=== PATIENT | male | born 1955 | race Caucasian/White ===

== ENCOUNTER 2019-08-21 16:21 | Emergency (ER) | payer BC, OTHER ==
[~2019-08-21] VITALS: Ht 172.7 cm; Wt 109.1 kg
[~2019-08-21 16:21] MED LIST: ASPI-587 PO; BLOOD PRESSURE; CLIN300C3 PO; MTP50T PO; MULT1CAP27 PO; NAPR220C11 PO
[2019-08-21] MEDS ORDERED: fentaNYL INJECTION 100 MCG/2 ML AMP ONE (16:27)
[2019-08-21] MEDS ORDERED: KETAMINE HCL 100 MG/ML 5 ML VIAL ONE (16:27)
[2019-08-21] MEDS ORDERED: KETAMINE/NaCl 50 MG/5 ML SYRINGE (ED ONLY) ONE (16:34)
[2019-08-21 16:41] LABS: HEMOGLOBIN 15.7 G/DL (13.3-17.7); MEAN PLATELET VOLUME 8.6 FL (7.4-10.4); RED CELL DISTRIBUTION WIDTH 14.1 % (10.0-14.5); WHITE BLOOD COUNT 12.1 10^3/uL (4.3-11.0)
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
[2019-08-21] MEDS ORDERED: fentaNYL INJECTION 100 MCG/2 ML AMP IVP ONE ×3 (16:45→17:30)
[2019-08-21] MEDS ORDERED: KETAMINE/NaCl 50 MG/5 ML SYRINGE (ED ONLY) IV ONE ×2 (16:45→17:30)
[2019-08-21] MEDS ORDERED: hydrALAZINE (APESOLINE) 20 MG/ML VIAL ONE (16:47)
[2019-08-21 16:58] LABS: ALANINE AMINOTRANSFERASE 10 U/L (0-55); ALBUMIN 4.3 GM/DL (3.2-4.5); ALKALINE PHOSPHATASE 123 U/L (40-136); BILIRUBIN,DIRECT 0.2 MG/DL (0.0-0.3); BILIRUBIN,INDIRECT 0.3 MG/DL; BILIRUBIN,TOTAL 0.5 MG/DL (0.1-1.0); BUN/CREATININE RATIO 13; CALCIUM 9.6 MG/DL (8.5-10.1); CARBON DIOXIDE 22 MMOL/L (21-32); CHLORIDE 106 MMOL/L (98-107); CREATININE SERUM 0.95 MG/DL (0.60-1.30); GFR ESTIMATED > 60; GLUCOSE 110 MG/DL (70-105); POTASSIUM 3.7 MMOL/L (3.6-5.0); SODIUM 140 MMOL/L (135-145); TOTAL PROTEIN 7.9 GM/DL (6.4-8.2)
[2019-08-21] MEDS ORDERED: LACTATED RINGERS 1,000 ML IV ONE (16:58)
--- NOTE | 2019-08-21 16:58 | NUR ---
[facility] ON STANDBY AT THIS TIME
[2019-08-21] MEDS ORDERED: hydrALAZINE (APESOLINE) 20 MG/ML VIAL IV ONE (17:00)
[2019-08-21] MEDS ORDERED: TETANUS,DIPTH,PERTUSS P/F (BOOSTRIX) 0.5 ML VIAL IM ONE (17:00)
[2019-08-21] MEDS ORDERED: ceFAZolin INJECTION 1,000 MG in WATER (STERILE) FOR INJECTION 10 ML IV ONE (17:00)
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
--- NOTE | 2019-08-21 17:25 | NUR ---
[facility] HERE TO TRANSPORT PT
[2019-08-21 17:33] VITALS: BP 176/109
[2019-08-21] MEDS ORDERED: LACTATED RINGERS 2,000 ML IV ONE (18:27)
== END 2019-08-21 17:35 | disposition short-term general hospital (02) ==
LOC: EDUNIT# 16:21 → ER 16:22
DX: T21.21XA Burn of second degree of chest wall, initial encounter (principal); T22.042A Burn of unspecified degree of left axilla, initial encounter; T21.04XA Burn of unspecified degree of lower back, initial encounter; T22.012A Burn of unspecified degree of left forearm, initial encounter; T23.091A Burn of unspecified degree of multiple sites of right wrist and hand, initial encounter; T23.092A Burn of unspecified degree of multiple sites of left wrist and hand, initial encounter; T31.0 Burns involving less than 10% of body surface; R40.2142 Coma scale, eyes open, spontaneous, at arrival to emergency department; R40.2252 Coma scale, best verbal response, oriented, at arrival to emergency department; R40.2362 Coma scale, best motor response, obeys commands, at arrival to emergency department; K21.9 Gastro-esophageal reflux disease without esophagitis; F17.200 Nicotine dependence, unspecified, uncomplicated; Z23 Encounter for immunization; Z79.82 Long term (current) use of aspirin; Z88.8 Allergy status to other drugs, medicaments and biological substances; X08.8XXA Exposure to other specified smoke, fire and flames, initial encounter
CPT/HCPCS: 36415; 71045; 80048; 80076; 80320; 85027; 90471; 90715; 93041; 96374; 96375; 96376

== ENCOUNTER → 2021-06-24 | Outpatient (CLI) | payer MEDICARE ==
[~2021-06-24] MED LIST changes: +CATHETER FLUSH 10 ML SYR IV PRN; +HOLD METFORMIN - RECEIVED CONTRAST 20 ML VIAL IV SCH; +IOHEXOL 350 MG/ML 100 ML (OMNIPAQUE 350) VIAL IV ONE; +NS 100 ML (IVPB) BAG IV ONE
[2021-06-24 10:53] LABS: ALBUMIN 3.9 GM/DL (3.2-4.5); BILIRUBIN,TOTAL 1.2 MG/DL (0.1-1.0); CALCIUM 9.7 MG/DL (8.5-10.1); CREATININE SERUM 0.75 MG/DL (0.60-1.30); TOTAL PROTEIN 7.8 GM/DL (6.4-8.2)
--- NOTE | 2021-06-24 13:23 | Diagnostic Imaging Report ---
PROCEDURE: CT chest with contrast only. TECHNIQUE: Multiple contiguous axial images were obtained through the chest after administration of intravenous contrast. Auto Exposure Controls were utilized during the CT exam to meet ALARA standards for radiation dose reduction. INDICATION: Shortness of breath with hemoptysis. History of colon cancer. FINDINGS: The lungs show some hyperaeration. There are numerous pulmonary nodules scattered throughout both lungs. The largest mass is in the upper lobe on the right measuring 7.5 x 5.5 cm. The largest mass in the left lung is in the lingula measuring 9.5 x 8 cm. Some of the nodules do show some calcification present. There is diffuse mediastinal and hilar adenopathy with adenopathy encasing the right hilum and compressing the right mainstem bronchus. The mediastinal lymph nodes measure upwards of 2 cm with multiple enlarged lymph nodes. There is a calcified enlarged lymph node in the subcarinal region as well. No pleural effusion. There is atelectasis of the right middle lobe secondary to compression of the bronchus from hilar adenopathy. The adrenal glands are not enlarged. There is a single hypodense subcentimeter area within the inferior portion of the right lobe of the liver. No blastic or lytic bony changes. IMPRESSION: Numerous nodules within both lungs with calcification in the larger masses. These findings would be consistent with metastatic adenocarcinoma with the patient's history. Dictated by: Dictated on workstation # [id number]
== END ==
LOC: RAD 10:19
PROVIDERS: ATTEND Internal Medicine
DX: C80.1 Malignant (primary) neoplasm, unspecified (principal); C78.01 Secondary malignant neoplasm of right lung; C78.02 Secondary malignant neoplasm of left lung; R91.8 Other nonspecific abnormal finding of lung field; Z85.038 Personal history of other malignant neoplasm of large intestine
CPT/HCPCS: 36415; 71260; 80053

== ENCOUNTER 2021-07-09 07:36 | Day surgery (SDC) | payer MEDICARE ==
[2021-07-09] VITALS (12 sets, daily range): BP systolic 107–132; BP diastolic 66–98
[~2021-07-09] VITALS: Ht 177.8 cm; Wt 86.3 kg
[~2021-07-09 07:36] MED LIST changes: -CATHETER FLUSH 10 ML SYR IV PRN; -HOLD METFORMIN - RECEIVED CONTRAST 20 ML VIAL IV SCH; -IOHEXOL 350 MG/ML 100 ML (OMNIPAQUE 350) VIAL IV ONE; -NS 100 ML (IVPB) BAG IV ONE
[2021-07-09] MEDS ORDERED: NS IV 1000 ML 1,000 ML IV STA (08:32)
[2021-07-09] MEDS ORDERED: fentaNYL INJ 100 MCG/2 ML AMP IVP ONE (08:45)
[2021-07-09] MEDS ORDERED: LIDOCAINE 1% INJ 20 ML 20 ML VIAL INJ ONE (08:45)
[2021-07-09] MEDS ORDERED: MIDAZOLAM 2 MG/2 ML (VERSED) VIAL IVP ONE (08:45)
[2021-07-09 08:48] LABS: BASOPHILS # (AUTO) 0.1 10^3/uL (0.0-0.1); BASOPHILS % (AUTO) 2 % (0-10); EOSINOPHILS # (AUTO) 0.7 10^3/uL (0.0-0.3); EOSINOPHILS % (AUTO) 9 % (0-10); HEMATOCRIT 45 % (40-54); HEMOGLOBIN 14.4 g/dL (13.3-17.7); LYMPHOCYTES # (AUTO) 1.3 10^3/uL (1.0-4.0); LYMPHOCYTES % (AUTO) 17 % (12-44); MEAN CORPUSCULAR HEMOGLOBIN 27 pg (25-34); MEAN CORPUSCULAR HGB CONC 32 g/dL (32-36); MEAN CORPUSCULAR VOLUME 83 fL (80-99); MEAN PLATELET VOLUME 8.8 fL (9.0-12.2); MONOCYTES # (AUTO) 0.8 10^3/uL (0.0-1.0); MONOCYTES % (AUTO) 10 % (0-12); NEUTROPHILS # (AUTO) 4.7 10^3/uL (1.8-7.8); NEUTROPHILS % (AUTO) 61 % (42-75); PLATELET COUNT 306 10^3/uL (130-400); WHITE BLOOD COUNT 7.7 10^3/uL (4.3-11.0)
[2021-07-09] MEDS ORDERED: HYDROcodone/APAP 5 MG/325 MG (LORTAB) TAB PO PRN (11:15)
--- NOTE | 2021-07-09 11:50 | Pre-Op Note & Conscious Sedat ---
Pre-Operative Progress Note H&P Reviewed The H&P was reviewed, patient examined and no changes noted. Date H&P Reviewed: Jul 09, 2021 Time H&P Reviewed: 09:00 Pre-Op Diagnosis: lung mass Conscious Sedation Pre-Proced Time 09:00 ASA Score 2 For ASA 3 and 4: Consider anesthesia and medical clearance. Also, for patients with a history of failed moderate sedation consider anesthesia. Airway Lungs Heart ASA score ASA 1: a normal healthy patient ASA 2: a patient with a mild systemic disease (mid diabetes, controlled hypertension, obesity ASA 3: a patient with a severe systemic disease that limits activity (angina, COPD, prior Myocardial infarction) ASA 4: a patient with an incapacitating disease that is a constant threat to life (CHF, renal failure) ASA 5: a moribund patient not expected to survive 24 hrs. (ruptured aneurysm) ASA 6: a declared brain- patient whose organs are being harvested. For emergent operations, add the letter E after the classification Mallampati Classification Grade 2 Sedation Plan Analgesia, Amnesia, Plan communicated to team members, Discussed options with patient/fam, Discussed risks with patient/fam The patient is an appropriate candidate to undergo the planned procedure, sedation, and anesthesia. The patient immediately re-assessed prior to indication. CECILE DIAZ MD Jul 09, 2021 11:50
--- NOTE | 2021-07-09 11:54 | Diagnostic Imaging Report ---
INDICATION: Lung mass. TECHNIQUE: All CT scans use one or more of the following dose optimizing techniques: automated exposure control, MA and/or KvP adjustment based on patient size and exam type or iterative reconstruction. DETAILS OF THE PROCEDURE: The patient was brought to the CT suite and placed on the table in the supine position. Axial imaging of the chest was performed to evaluate for an appropriate entry site. The skin of the left anterior chest was prepped and draped in the usual sterile fashion. A small amount of 1% lidocaine was utilized for local anesthesia. The procedure was performed utilizing conscious sedation with Radiology nursing and constant patient monitoring. The patient was given a total of 100 mg of fentanyl intravenously and 1 mg Versed intravenously. The total procedure time was 7 minutes. FINDINGS: An 18-gauge coaxial Temno needle was advanced and placed with its tip in the dominant mass in the left upper lobe. A total of 5 core biopsies was obtained. A blood patch was injected during needle removal. The patient tolerated the procedure well and left the Department in stable condition. Followup imaging shows no complicating features. No pneumothorax was detected. IMPRESSION: Successful CT-guided left upper lobe lung mass core biopsy utilizing conscious sedation. Pathology results are currently pending. Dictated by: Dictated on workstation # [id number]
--- NOTE | 2021-07-09 12:43 | Diagnostic Imaging Report ---
INDICATION: Left lung biopsy. COMPARISON: Correlation is made with prior chest from 08/21/2019. FINDINGS: Enlarging masses bilaterally are noted. There is a left chest wall port with tip overlying the SVC. No pneumothorax is identified, status post left lung mass biopsy. There is no effusion. IMPRESSION: 1. Enlarging masses since exam from 2019. 2. No evidence of pneumothorax, status post left lung mass biopsy. Dictated by: Dictated on workstation # [id number]
== END 2021-07-09 13:10 ==
LOC: RAD 07:36 → SDC 10:46 → RAD 13:10
PROVIDERS: ATTEND Internal Medicine
DX: J85.0 Gangrene and necrosis of lung (principal); R91.8 Other nonspecific abnormal finding of lung field; J98.4 Other disorders of lung; J40 Bronchitis, not specified as acute or chronic
CPT/HCPCS: 36415; 71045; 77012; 85025; 85610; 85730; 88305; 99156

== ENCOUNTER 2021-08-04 07:59 | Day surgery (SDC) | payer MEDICARE ==
[2021-08-04] VITALS (11 sets, daily range): BP systolic 101–124; BP diastolic 67–90
[~2021-08-04] VITALS: Ht 177 cm; Wt 81.0 kg
[2021-08-04 08:39] LABS: BASOPHILS # (AUTO) 0.1 10^3/uL (0.0-0.1); BASOPHILS % (AUTO) 1 % (0-10); EOSINOPHILS # (AUTO) 0.5 10^3/uL (0.0-0.3); EOSINOPHILS % (AUTO) 6 % (0-10); HEMATOCRIT 48 % (40-54); HEMOGLOBIN 14.7 g/dL (13.3-17.7); LYMPHOCYTES # (AUTO) 1.4 10^3/uL (1.0-4.0); LYMPHOCYTES % (AUTO) 16 % (12-44); MEAN CORPUSCULAR HEMOGLOBIN 26 pg (25-34); MEAN CORPUSCULAR HGB CONC 31 g/dL (32-36); MEAN CORPUSCULAR VOLUME 86 fL (80-99); MEAN PLATELET VOLUME 8.8 fL (9.0-12.2); MONOCYTES % (AUTO) 11 % (0-12); NEUTROPHILS # (AUTO) 5.7 10^3/uL (1.8-7.8); NEUTROPHILS % (AUTO) 66 % (42-75); PLATELET COUNT 374 10^3/uL (130-400); WHITE BLOOD COUNT 8.7 10^3/uL (4.3-11.0)
[2021-08-04] MEDS ORDERED: NS IV 1000 ML 1,000 ML IV STA (08:42)
[2021-08-04] MEDS ORDERED: LISI1TAB46 PO (08:43)
[2021-08-04] MEDS ORDERED: ATOR40TA70 PO (08:43)
[2021-08-04] MEDS ORDERED: MIDAZOLAM 2 MG/2 ML (VERSED) VIAL IVP ONE (08:45)
[2021-08-04] MEDS ORDERED: LIDOCAINE 1% INJ 20 ML 20 ML VIAL INJ ONE (08:45)
[2021-08-04] MEDS ORDERED: fentaNYL INJ 100 MCG/2 ML AMP IVP ONE (08:45)
[2021-08-04 08:50] LABS: PROTHROMBIN TIME PATIENT 13.9 SEC (12.2-14.7)
[2021-08-04] MEDS ORDERED: fentaNYL INJ 100 MCG/2 ML AMP ONE (09:12)
[2021-08-04] MEDS ORDERED: LIDOCAINE 1% INJ 20 ML 20 ML VIAL ONE (09:12)
[2021-08-04] MEDS ORDERED: MIDAZOLAM 2 MG/2 ML (VERSED) VIAL ONE (09:12)
--- NOTE | 2021-08-04 10:08 | Pre-Op Note & Conscious Sedat ---
Pre-Operative Progress Note H&P Reviewed The H&P was reviewed, patient examined and no changes noted. Date H&P Reviewed: Aug 04, 2021 Time H&P Reviewed: 09:00 Pre-Op Diagnosis: lung mass Conscious Sedation Pre-Proced Time 09:00 ASA Score 2 For ASA 3 and 4: Consider anesthesia and medical clearance. Also, for patients with a history of failed moderate sedation consider anesthesia. Airway Lungs Heart ASA score ASA 1: a normal healthy patient ASA 2: a patient with a mild systemic disease (mid diabetes, controlled hypertension, obesity ASA 3: a patient with a severe systemic disease that limits activity (angina, COPD, prior Myocardial infarction) ASA 4: a patient with an incapacitating disease that is a constant threat to life (CHF, renal failure) ASA 5: a moribund patient not expected to survive 24 hrs. (ruptured aneurysm) ASA 6: a declared brain- patient whose organs are being harvested. For emergent operations, add the letter E after the classification Mallampati Classification Grade 2 Sedation Plan Analgesia, Amnesia, Plan communicated to team members, Discussed options with patient/fam, Discussed risks with patient/fam The patient is an appropriate candidate to undergo the planned procedure, sedation, and anesthesia. The patient immediately re-assessed prior to indication. CECILE DIAZ MD Aug 04, 2021 10:08
[2021-08-04] MEDS ORDERED: HYDROcodone/APAP 5 MG/325 MG (LORTAB) TAB PO PRN (10:15)
--- NOTE | 2021-08-04 10:20 | Diagnostic Imaging Report ---
INDICATION: Left lung mass. Patient presents for repeat CT-guided biopsy. TECHNIQUE: All CT scans use one or more of the following dose optimizing techniques: automated exposure control, MA and/or KvP adjustment based on patient size and exam type or iterative reconstruction DETAILS OF THE PROCEDURE: The patient was brought to the CT suite and placed on the table in the supine position. Axial imaging through the chest was performed to evaluate for an appropriate entry site. The left anterior chest was prepped and draped in the usual sterile fashion. A small amount of 1% lidocaine was utilized for local anesthesia. The procedure was performed utilizing conscious sedation with Radiology nursing and constant patient monitoring. The patient was given a total of 50 mcg of fentanyl intravenously and 1 mg of Versed intravenously. The total procedure time was 7 minutes. An 18-gauge coaxial Temno needle was advanced and placed into the dominant mass in the left upper lobe. Numerous core biopsies were obtained. A blood patch was injected during needle removal. Hemostasis was obtained using manual compression. Followup imaging shows no complicating features. No pneumothorax is identified. IMPRESSION: Successful ultrasound guided core biopsy of the dominant mass in the left upper lobe utilizing conscious sedation. Pathology results are currently pending. . Dictated by: Dictated on workstation # [id number]
--- NOTE | 2021-08-04 12:09 | Diagnostic Imaging Report ---
INDICATION: Status post lung biopsy. COMPARISON: 07/09/2021. FINDINGS: Single frontal radiographic view of the chest was obtained and demonstrates no pneumothorax status post left lung mass biopsy. There is no large effusion. Multiple mass-like opacities are again identified bilaterally. Cardiac silhouette is partially obscured, but appears stable. Left sided Port-A-Cath is noted with tip in the mid to upper IVC. IMPRESSION: 1. No pneumothorax status post left lung mass biopsy. 2. Redemonstration of multiple bilateral lung masses. Dictated by: Dictated on workstation # [id number]
== END 2021-08-04 12:47 ==
LOC: SDC 07:59
PROVIDERS: ATTEND Internal Medicine
DX: C34.92 Malignant neoplasm of unspecified part of left bronchus or lung (principal); I10 Essential (primary) hypertension; J40 Bronchitis, not specified as acute or chronic; Z79.899 Other long term (current) drug therapy; Z90.49 Acquired absence of other specified parts of digestive tract; Z85.038 Personal history of other malignant neoplasm of large intestine; Z87.891 Personal history of nicotine dependence
CPT/HCPCS: 36415; 71045; 77012; 85025; 85610; 85730; 88305; 88341; 88342; 99156

== ENCOUNTER → 2021-09-04 | Outpatient (CLI) | payer MEDICARE ==
[~2021-09-04] MED LIST changes: +ATOR40TA70 PO; +CATHETER FLUSH 10 ML SYR IV PRN; +HOLD METFORMIN - RECEIVED CONTRAST 20 ML VIAL IV SCH; +IOHEXOL 350 MG/ML 100 ML (OMNIPAQUE 350) VIAL IV ONE; +LISI1TAB46 PO; +NS 100 ML (IVPB) BAG IV ONE
--- NOTE | 2021-09-04 14:00 | Diagnostic Imaging Report ---
EXAMINATION: CT chest with intravenous contrast. TECHNIQUE: Multiple contiguous axial images were obtained through the chest after the uneventful administration of intravenous contrast. All CT scans use one or more of the following dose optimizing techniques: automated exposure control, MA and/or KvP adjustment based on patient size and exam type or iterative reconstruction. HISTORY: History of colon cancer with lung metastases. Respiratory distress. COMPARISON: 06/24/2021. FINDINGS: The heart size is within normal limits. Small pericardial effusion is present. Pathologically enlarged lymphadenopathy is seen in the mediastinum and bilateral hilar regions with a marker lymph node in the right paratracheal station measuring 1.8 cm, previously measuring 2.2 cm. Lung masses and nodules are again seen throughout both lungs, with the dominant mass in the lingula/inferior aspect of the left upper lobe measuring 9.7 x 8.7 cm, previously measuring 9.3 x 8.0 cm. There is stable mass within the distal aspect of the left mainstem bronchus. There is stable narrowing of the right mainstem bronchus secondary to hilar lymphadenopathy. There is stable complete atelectasis of the right middle lung. Trace right-sided pleural effusion is seen. No evidence of pneumothorax. The osseous structures demonstrate no acute abnormalities. Limited views of the upper abdominal structures demonstrate no acute abnormalities. Both adrenal glands are unremarkable. IMPRESSION: 1. Interval progression of widespread metastatic disease throughout both lungs with increase in size in the dominant lesion in the lingula/inferior portion of the left upper lobe. 2. Redemonstration of pathologically enlarged mediastinal and hilar lymph nodes. These are causing mass effect on the right mainstem bronchus with complete atelectasis of the right middle lobe. Dictated by: Dictated on workstation # [id number]
== END ==
LOC: RAD 13:13
PROVIDERS: ATTEND Internal Medicine Hematology & Oncology
DX: C18.9 Malignant neoplasm of colon, unspecified (principal); C78.02 Secondary malignant neoplasm of left lung; C78.01 Secondary malignant neoplasm of right lung
CPT/HCPCS: 71260

== ENCOUNTER 2021-09-15 09:30 | Inpatient (IN) | payer MEDICARE ==
[~2021-09-15] VITALS: Ht 176 cm; Wt 75.7 kg
[~2021-09-15 09:30] MED LIST changes: -ATOR80TA76 PO; -PRED10TA22 PO
--- NOTE | 2021-09-15 09:54 | ED Respiratory ---
General Chief Complaint: Respiratory Problems Stated Complaint: SOB Nursing Triage Note: PT TO RM 2 BY WHEELCHAIR FROM RADIOLOGY FOR CONCERN OF COLLAPSED LUNG. PT WAS HAVING SCAN FOR RADIATION TREATMENT. STATES HE STARTED COUGHING ON WEDNESDAY. PT WAS 83% ON 4LNC. Source: patient Exam Limitations: no limitations History of Present Illness Date Seen by Provider: Sep 15, 2021 Time Seen by Provider: 09:40 Initial Comments Patient is a 66-year-old male who presents to the emergency department from the cancer [place] with a chief complaint of "collapsed lung". Patient was recently diagnosed with lung cancer, he was getting ready to have radiation treatment today, they did a prescreening chest x-ray and noticed what looked like the right lung being "down". On my review it appears the patient has a very large right pleural effusion. Nursing reports that on 4 L the patient was 83% when he arrived to the emergency room. He does wear 2 to 3 L of oxygen 15/03. He states normally his oxygen is fairly good. Off oxygen he was running at about 85% prior to his diagnosis of cancer. He states he actually does not feel bad. He has no pain. He has chronic cough and chronic shortness of breath related to the cancer. He has not had anything for breakfast this morning did have a small sip of water with his morning medications. No recent fevers, chills, Covid concerns. All other review of systems reviewed and negative except as stated Timing/Duration: this morning Prior Episodes/Possible Cause: other (lung cancer) Modifying Factors: Worse With Coughing; Improves With Oxygen Associated Symptoms: cough (chronic), shortness of breath (chronic) Allergies and Home Medications Allergies Coded Allergies: adhesive (Verified Allergy, Mild, 02/15/14) Patient Home Medication List Home Medication List Reviewed: Yes Atorvastatin Calcium (Atorvastatin Calcium) 40 Mg Tablet, 40 MG PO DAILY, (Reported) Entered as Reported by: EMIL ANDINO on 08/04/21842 Lisinopril/Hydrochlorothiazide (Lisinopril-Hctz 20-12.5 mg Tab) 1 Each Tablet, 1 EACH PO DAILY, (Reported) Entered as Reported by: EMIL ANDINO on 08/04/21842 Review of Systems Review of Systems Constitutional: see HPI EENTM: no symptoms reported Respiratory: cough, short of breath Cardiovascular: no symptoms reported Gastrointestinal: no symptoms reported Genitourinary: no symptoms reported Musculoskeletal: no symptoms reported Skin: no symptoms reported Psychiatric/Neurological: No Symptoms Reported All Other Systems Reviewed Negative Unless Noted: Yes Past Ezwrakj-Hiisqy-Urwypc Hx Immunizations Up To Date Tetanus Booster (TDap): More than 5yrs PED Vaccines UTD: Yes Past Medical History Surgeries: Yes (HEMORRHOIDECTOMY, LEFT ANKLE FX, LEFT HAND FX, COLOSTOMY) Respiratory: No Cardiac: Yes Neurological: No Gastrointestinal: Yes (COLON CA, COLOSTOMY) Gastroesophageal Reflux Musculoskeletal: Yes (ANKLE ET LT HAND REPAIR) Endocrine: No Cancer: Yes Colon Psychosocial: No Integumentary: No Blood Disorders: No Physical Exam Vital Signs - First Documented 09/15/21 09:30 Pulse 92 Resp 12 B/P (MAP) 120/76 (91) Pulse Ox 83 O2 Delivery Nasal Cannula O2 Flow Rate 3.00 Capillary Refill : Height: 5'9.00" Weight: 203lbs. oz. 92.943434iw; 24.00 BMI Method: General Appearance: WD/WN, mild distress Eyes: Bilateral Eye Normal Inspection, Bilateral Eye PERRL, Bilateral Eye EOMI HEENT: PERRL/EOMI Neck: normal inspection Respiratory: lungs clear (slightly diminished left; sats 95% on 10-12 liters), no respiratory distress, no accessory muscle use, other (slightly labored breathing) Cardiovascular: regular rate, rhythm Gastrointestinal: normal bowel sounds, non tender, soft Extremities: non-tender, normal inspection, no pedal edema Neurologic/Psychiatric: alert, normal mood/affect, oriented x 3 Skin: normal color, warm/dry Progress/Results/Core Measures Suspected Sepsis SIRS Temperature: Pulse: 92 Respiratory Rate: 12 Laboratory Tests 09/15/21 09:38: White Blood Count 9.4 Blood Pressure 120 /76 Mean: 91 Laboratory Tests 09/15/21 09:38: Creatinine 0.64, INR Comment 1.0, Platelet Count 325, Total Bilirubin 1.2H Results/Orders Lab Results Laboratory Tests Test 09/15/21 09:38 Range/Units White Blood Count 9.4 4.3-11.0 10^3/uL Red Blood Count 5.52 4.30-5.52 10^6/uL Hemoglobin 14.7 13.3-17.7 g/dL Hematocrit 47 40-54 % Mean Corpuscular Volume 85 80-99 fL Mean Corpuscular Hemoglobin 27 25-34 pg Mean Corpuscular Hemoglobin Concent 31 L 32-36 g/dL Red Cell Distribution Width 14.6 H 10.0-14.5 % Platelet Count 325 130-400 10^3/uL Mean Platelet Volume 8.5 L 9.0-12.2 fL Immature Granulocyte % (Auto) 1 % Neutrophils (%) (Auto) 83 H 42-75 % Lymphocytes (%) (Auto) 10 L 12-44 % Monocytes (%) (Auto) 5 0-12 % Eosinophils (%) (Auto) 2 0-10 % Basophils (%) (Auto) 0 0-10 % Neutrophils # (Auto) 7.7 1.8-7.8 10^3/uL Lymphocytes # (Auto) 0.9 L 1.0-4.0 10^3/uL Monocytes # (Auto) 0.4 0.0-1.0 10^3/uL Eosinophils # (Auto) 0.1 0.0-0.3 10^3/uL Basophils # (Auto) 0.0 0.0-0.1 10^3/uL Immature Granulocyte # (Auto) 0.1 0.0-0.1 10^3/uL Prothrombin Time 13.5 12.2-14.7 SEC INR Comment 1.0 0.8-1.4 Activated Partial Thromboplast Time 28 24-35 SEC Sodium Level 140 135-145 MMOL/L Potassium Level 3.3 L 3.6-5.0 MMOL/L Chloride Level 99 98-107 MMOL/L Carbon Dioxide Level 28 21-32 MMOL/L Anion Gap 13 5-14 MMOL/L Blood Urea Nitrogen 16 7-18 MG/DL Creatinine 0.64 0.60-1.30 MG/DL Estimat Glomerular Filtration Rate 104 BUN/Creatinine Ratio 25 Glucose Level 77 70-105 MG/DL Calcium Level 9.1 8.5-10.1 MG/DL Corrected Calcium 9.5 8.5-10.1 MG/DL Total Bilirubin 1.2 H 0.1-1.0 MG/DL Aspartate Amino Transf (AST/SGOT) 23 5-34 U/L Alanine Aminotransferase (ALT/SGPT) 17 0-55 U/L Alkaline Phosphatase 113 40-136 U/L Total Protein 7.3 6.4-8.2 GM/DL Albumin 3.5 3.2-4.5 GM/DL My Orders Orders - KENTRELL HARRIS MD Ed Iv/Invasive Line Start (09/15/21 09:50) Cbc With Automated Diff (09/15/21 09:50) Comprehensive Metabolic Panel (09/15/21 09:50) Protime With Inr (09/15/21 09:50) Partial Thromboplastin Time (09/15/21 09:50) Ct Chest W (09/15/21 09:50) Iohexol Injection (Omnipaque 350 Mg/Ml 1 (09/15/21 10:15) Received Contrast (Hold Metformin- Contr (09/15/21 10:15) Ns (Ivpb) (Sodium Chloride 0.9% Ivpb Bag (09/15/21 10:15) Methylprednisolone Sod Succ (Solu-Medrol (09/15/21 12:30) Covid 19 Inhouse Test (09/15/21 12:18) Influenza A And B By Pcr (09/15/21 12:18) Isolation Central Supply Req (09/15/21 12:18) Medications Given in ED Current Medications Medications Dose Ordered Sig/Mone Route Start Time Stop Time Status Last Admin Dose Admin Iohexol 100 ml ONCE ONCE IV 09/15/21 10:15 09/15/21 10:16 DC 09/15/21 10:33 74 ML Sodium Chloride 100 ml ONCE ONCE IV 09/15/21 10:15 09/15/21 10:16 DC 09/15/21 10:33 80 ML Vital Signs/I&O 09/15/21 09/15/21 09:30 09:30 Pulse 92 Resp 12 B/P (MAP) 120/76 (91) Pulse Ox 83 O2 Delivery Nasal Cannula Nasal Cannula O2 Flow Rate 3.00 4.00 Capillary Refill : Blood Pressure Mean: 91 Progress Note : Time: 12:09 Progress Note Case discussed with Dr. Lee as well as Dr. Cuevas radiation oncology, patient has complete atelectasis of the entire right lung with minimal right-sided pleural effusion. Complete occlusion of the right mainstem bronchus. Needs significant amounts of radiation to give him a chance to recover from this. He did have a radiation dose this morning prior to coming over with his hypoxia. I think that he would struggle at home on higher amounts of oxygen and the potential for decompensation is significant. We will talk to Dr. Szymanski for admission. I reevaluated the patient he is still on simple facemask, oxygen saturations 96% while at rest in the bed on 06/02. Rest of his labs are unremarkable. Departure Communication (Admissions) Time/Spoke to Admitting Phy: 12:30 Dr Szymanski - will put in que'd orders Time/Spoke to Consulting Phy: 11:[address] Appiah Impression Primary Impression: Hypoxia Additional Impression: Metastatic adenocarcinoma Disposition: ADMITTED INPATIENT Condition: Stable Admissions Decision to Admit Reason: Admit from ER (General) Decision to Admit/Date: Sep 15, 2021 Time/Decision to Admit Time: 12:31 Departure-Patient Inst. Referrals: CHANTE LINDQUIST MD (PCP/Family) Primary Care Physician KENTRELL HARRIS MD Sep 15, 2021 09:54
[2021-09-15 10:01] LABS: BASOPHILS % (AUTO) 0 % (0-10); EOSINOPHILS # (AUTO) 0.1 10^3/uL (0.0-0.3); EOSINOPHILS % (AUTO) 2 % (0-10); HEMATOCRIT 47 % (40-54); HEMOGLOBIN 14.7 g/dL (13.3-17.7); LYMPHOCYTES # (AUTO) 0.9 10^3/uL (1.0-4.0); LYMPHOCYTES % (AUTO) 10 % (12-44); MEAN CORPUSCULAR HEMOGLOBIN 27 pg (25-34); MEAN CORPUSCULAR HGB CONC 31 g/dL (32-36); MEAN CORPUSCULAR VOLUME 85 fL (80-99); MEAN PLATELET VOLUME 8.5 fL (9.0-12.2); MONOCYTES # (AUTO) 0.4 10^3/uL (0.0-1.0); MONOCYTES % (AUTO) 5 % (0-12); NEUTROPHILS # (AUTO) 7.7 10^3/uL (1.8-7.8); NEUTROPHILS % (AUTO) 83 % (42-75); PLATELET COUNT 325 10^3/uL (130-400); WHITE BLOOD COUNT 9.4 10^3/uL (4.3-11.0)
[2021-09-15 10:03] LABS: ALBUMIN 3.5 GM/DL (3.2-4.5)
[2021-09-15 10:04] LABS: POTASSIUM 3.3 MMOL/L (3.6-5.0)
[2021-09-15 10:05] LABS: CALCIUM 9.1 MG/DL (8.5-10.1)
[2021-09-15 10:06] LABS: TOTAL PROTEIN 7.3 GM/DL (6.4-8.2)
[2021-09-15 10:08] LABS: BILIRUBIN,TOTAL 1.2 MG/DL (0.1-1.0); PROTHROMBIN TIME PATIENT 13.5 SEC (12.2-14.7)
[2021-09-15 10:10] LABS: CREATININE SERUM 0.64 MG/DL (0.60-1.30)
[2021-09-15] MEDS ORDERED: IOHEXOL 350 MG/ML 100 ML (OMNIPAQUE 350) VIAL IV ONE (10:15)
[2021-09-15] MEDS ORDERED: HOLD METFORMIN - RECEIVED CONTRAST 20 ML VIAL IV SCH (10:15)
[2021-09-15] MEDS ORDERED: NS 100 ML (IVPB) BAG IV ONE (10:15)
--- NOTE | 2021-09-15 11:14 | Diagnostic Imaging Report ---
PROCEDURE: CT chest with contrast only. TECHNIQUE: Multiple contiguous axial images were obtained through the chest after administration of intravenous contrast. Auto Exposure Controls were utilized during the CT exam to meet ALARA standards for radiation dose reduction. INDICATION: Lung cancer with new opacification of right hemithorax. COMPARISON: Correlation is made with chest radiograph earlier same day as well as prior CT chest from 09/04/2021. FINDINGS: There has been development of complete opacification of the right hemithorax. The opacification appears to be largely owing to complete atelectasis of the entire right lung as well as tumor. It is difficult to separate tumor from atelectatic lung. There is a complete occlusion of the right mainstem bronchus. There is some pleural fluid on the right, small. A large mass in the left upper lobe appears similar. There are innumerable additional smaller masses throughout the left upper lobe as well as the left lower lobe and lingula, similar to the prior study from 11 days earlier. No left-sided pleural fluid is seen. There are numerous enlarged masses in the mediastinum, similar to prior exam. The thoracic aorta is unremarkable. No dissection is seen. The central pulmonary arteries are patent. No definite thromboemboli are seen. Upper abdomen is unremarkable. IMPRESSION: There is now complete atelectasis of the entire right lung with occlusion of the right mainstem bronchus. No aerated right lung is visible. There is a small right effusion as well. Tumor masses throughout the left lung and mediastinal metastatic disease are unchanged. Dictated by: Dictated on workstation # [id number]
[2021-09-15] MEDS ORDERED: methylPREDNISolone 125 MG (Solu-MEDROL) VIAL IVP ONE (12:30)
[2021-09-15 13:37] LABS: ABG BASE EXCESS 6.3 MMOL/L (-2.5-2.5); ABG OXYGEN SATURATION 96 % (94-100); ABG PCO2 45 MMHG (35-45); ABG PH 7.45 (7.37-7.43); ABG PO2 71 MMHG (79-93); ABG TCO2 31.8 MMOL/L (21.0-31.0)
[2021-09-15 13:38] LABS: ALLENS TEST YES-POS; INSPIRED O2 9; PATIENT TEMP 36.7; VENTILATOR NO
[2021-09-15] MEDS ORDERED: ALPRAZolam 0.5 MG (XANAX) TAB PO PRN (14:45)
[2021-09-15] MEDS ORDERED: NALOXONE 0.4 MG/ML 1 ML (NARCAN) VIAL IV PRN (14:45)
[2021-09-15] MEDS ORDERED: diphenhydrAMINE 50 MG/ML INJ (BENADRYL) IVP PRN (14:45)
[2021-09-15] MEDS ORDERED: diphenhydrAMINE 25 MG TAB (BENADRYL) PO PRN (14:45)
[2021-09-15] MEDS ORDERED: ONDANSETRON 4 MG (ZOFRAN) ORAL DISSOLVE TAB PO PRN (14:45)
[2021-09-15] MEDS ORDERED: BISACODYL 10 MG SUPP (DULCOLAX) PR PRN (14:45)
[2021-09-15] MEDS ORDERED: LACTULOSE SYRUP 10GM/15ML (ENULOSE) 30ML UDC PO PRN (14:45)
[2021-09-15] MEDS ORDERED: ACETAMINOPHEN 325 MG TABLET PO PRN (14:45)
[2021-09-15] MEDS ORDERED: morphine INJ 4 MG/ML 1 ML (VIAL/SYRINGE) IV PRN (14:45)
[2021-09-15] MEDS ORDERED: ANTACID SUSP 30 ML UDC (MYLANTA) PO PRN (14:45)
[2021-09-15] MEDS ORDERED: MILK OF MAGNESIA 400 MG/5 ML 30 ML UDC PO PRN (14:45)
[2021-09-15] MEDS ORDERED: MELATONIN 3 MG TABLET PO PRN (14:45)
[2021-09-15] MEDS ORDERED: polyethylene glycoL POWDER 17 GM (MIRALAX) PACK PO PRN (14:45)
[2021-09-15] MEDS ORDERED: ONDANSETRON 4 MG/2 ML (SDV) Z0FRAN IV PRN (14:45)
[2021-09-15 15:15] VITALS: BP 122/79
--- NOTE | 2021-09-15 15:23 | History & Physical-Hospitalist ---
SANDRA SCHWARTZ 09/15/21 1523: History of Present Illness HPI/Chief Complaint This is a 66 y/o male with a hx of colon cancer with extensive metastases to the lungs and liver who presents due to hypoxia and a possible collapsed right lung. The pt was scheduled for his 6th day of radiation today when a pre-procedure chest X-ray showed a possible collapse of the right lung. At this time, the patient was also observed with an O2 saturation of 83% on 4 L by NC; his baseline O2 requirement. He was then sent to the ED at [facility] for further evaluation. In the ED, his O2 improved to 93% on 10L NC. A Chest CT obtained at this time showed "complete atelectasis of the entire right lung with occlusion of the right mainstem bronchus. No aerated right lung is visible." He currently reports no pain, fevers, chills, nausea, or change in bowel or bladder habits. He does report a chronic cough, and some recent unintended weight loss. Source: patient Exam Limitations: no limitations Date Seen 09/15/21 Time Seen by a Provider: 13:00 Attending Physician Bushra Bass DO PCP Carlos Flowers MD Referring Physician Date of Admission Sep 15, 2021 at 14:53 Home Medications & Allergies Home Medications Reviewed patient Home Medication Reconciliation performed by pharmacy medication reconciliations technician preventative medicine and/or nursing. Patients Allergies have been reviewed. Allergies Allergies Coded Allergies adhesive (Verified Allergy, Mild, 09/15/21) Past Hyvjago-Vdsatm-Zdchty Hx Patient Social History Employed/Student: retired Tobacco Use?: No Smoking Status: Former Smoker (1-1.5 ppd for 50 years) Use of E-Cig and/or Vaping dev: No Substance use?: No Alcohol Use?: No Pt feels they are or have been: No Immunizations Up To Date Tetanus Booster (TDap): Unknown PED Vaccines UTD: Yes Current Status Advance Directives: No Primary Language: Urdu Preferred Spoken Language: Urdu Implanted or [employer] D: Port-a-cath (left side; placed in 2014) Past Medical History Surgeries: Abdominal (left hemicolectomy) Hypertension Gastroesophageal Reflux Fractures (left leg and ankle fracture) Colon (with metastases to liver and lungs) Did You Recieve Any Treatments: Yes What Type of Treatment Did You: Chemotherapy, Radiation, Surgical Intervention Blood Disorders: No Family Medical History No Pertinent Family Hx Review of Systems Constitutional: No chills, No fever; weight loss EENTM: No hearing loss, No blurred vision, No vision loss, No throat pain Respiratory: cough, short of breath, wheezing Cardiovascular: No chest pain, No palpitations Gastrointestinal: No abdominal pain, No constipation, No diarrhea; loss of appetite; No nausea, No vomiting Genitourinary: No discharge, No dysuria Musculoskeletal: no symptoms reported Skin: no symptoms reported Psychiatric/Neurological: No Symptoms Reported Physical Exam Physical Exam Vital Signs Vital Signs - First Documented 09/15/21 09:30 Pulse 92 Resp 12 B/P (MAP) 120/76 (91) Pulse Ox 83 O2 Delivery Nasal Cannula O2 Flow Rate 3.00 Capillary Refill : Height, Weight, BMI Height: 5'9.00" Weight: 203lbs. oz. 92.148033as; 24.00 BMI Method: General Appearance: Chronically ill, Mild Distress, Thin Eyes: Bilateral Eye Normal Inspection, Bilateral Eye PERRL, Bilateral Eye EOMI HEENT: PERRL/EOMI Neck: Non Tender Respiratory: Chest Non Tender, Decreased Breath Sounds (primarily on the right), Wheezing (primarily on the left) Cardiovascular: Regular Rate, Rhythm, No Gallop, No Murmur Gastrointestinal: Non Tender, Soft Rectal: Deferred Extremity: Non Tender Neurologic/Psychiatric: Alert, Oriented x3 Skin: Normal Color, Warm/Dry Results Results/Procedures Labs Laboratory Tests 09/15/21 09:38 Patient resulted labs reviewed. Imaging: Reviewed Imaging Films, Reviewed Imaging Report Assessment/Plan Admission Diagnosis acute on chronic hypoxic respiratory failure Admission Status: Inpatient Order (span 2 midnights) Reason for Inpatient Admission: acute on chronic hypoxic respiratory failure Assessment and Plan This is a 66 y/o male with a hx of adenocarcinoma of the colon with metastases to the liver and lungs who presents with atelectasis of the right lung due to obstruction of the right main stem bronchus by tumor, resulting in acute on chronic hypoxic respiratory failure. In his current condition, it is thought that it will be dangerous to send him home with his current oxygen requirements, so admission to the medicine service is warranted. Diagnosis/Problems Diagnosis/Problems (1) Acute on chronic respiratory failure with hypoxia and hypercapnia Status: Acute Assessment & Plan: - likely 2/2 right lung atelectasis - initial O2 sat by pulse ox in ED: 83% - initial AB.45/45/71/30 - increasing O2 requirements - CXR/Chest CT suggests obstruction of right main stem bronchus by metastatic disease - pulm toilet w/ CPT q4h for clearance of airway secretions (if no acute spinal pathology, hemoptysis, PE, pulm edema w/ CHF present) - caution over sedation and monitor clearance of airway secretions while on anti-tussives PRN - RCAT, IS q1h awake - wean O2 as tolerated (2) Metastatic adenocarcinoma Status: Chronic Assessment & Plan: - Stage 4 adenocarcinoma of the colon with mets in lung and liver - Pt currently undergoing radiation and chemotherapy treatments at [facility] - Oncology and radiation oncology to follow; appreciate recs - Consider palliative care consult (3) Hypertension Status: Chronic Assessment & Plan: - continue lisinopril/HCTZ Qualifiers: Hypertension type: primary hypertension Qualified Codes: I10 - Essential (primary) hypertension (4) Hyperlipemia Status: Chronic Assessment & Plan: - continue statin Qualifiers: Hyperlipidemia type: mixed hyperlipidemia Qualified Codes: E78.2 - Mixed hyperlipidemia BASSLAYLA ELLISKd TAN 09/16/21 0554: History of Present Illness HPI/Chief Complaint Chief complaint: Shortness of breath History of present illness: This is a 66-year-old white male with known history of colon cancer with widespread metastasis undergoing radiation treatment for lung masses who presented with shortness of breath found to have complete whiteout of right lung. Radiation treatment is the only way the tumor can be shrunk in order to improve variation of the lung. Dr. Lee will consult. Oxygen supplementation along with IV steroids and nebulized treatments initiated. He is a DO NOT RESUSCITATE. Source: patient Exam Limitations: no limitations Past Pcfodla-Lrfetm-Hiivry Hx Patient Social History Marrital Status: single Employed/Student: retired Smoking Status: Former Smoker (1-1.5 ppd for 50 years) Past Medical History Hypertension Review of Systems Constitutional: see HPI Respiratory: dyspnea on exertion Physical Exam Physical Exam General Appearance: No Apparent Distress, Chronically ill Eyes: Right Eye Normal Inspection, Right Eye PERRL HEENT: PERRL/EOMI, Normal ENT Inspection, Pharynx Normal, Moist Mucous Membranes Neck: Full Range of Motion, Normal Inspection, Non Tender Respiratory: Chest Non Tender, No Accessory Muscle Use, No Respiratory Distress, Decreased Breath Sounds (primarily on the right), Wheezing (primarily on the left) Cardiovascular: Regular Rate, Rhythm, No Edema, No Gallop, No JVD, No Murmur, Normal Peripheral Pulses Gastrointestinal: Normal Bowel Sounds, No Organomegaly, No Pulsatile Mass, Non Tender, Soft Back: Normal Inspection, No CVA Tenderness, No Vertebral Tenderness Extremity: Normal Capillary Refill, Normal Inspection, Normal Range of Motion, Non Tender, No Calf Tenderness, No Pedal Edema Neurologic/Psychiatric: Alert, Oriented x3, No Motor/Sensory Deficits, Normal Mood/Affect Skin: Normal Color, Warm/Dry Lymphatic: No Adenopathy Assessment/Plan Admission Diagnosis Assessment: Acute hypoxic respiratory failure Colon cancer with widespread metastasis Lung mass causing whiteout of the lung undergoing radiation treatment the only treatment available Exacerbation of COPD Hypertension Plan: Nebulizers Oxygen IV steroids Radiation treatment Admission Status: Inpatient Order (span 2 midnights) Reason for Inpatient Admission: resp failure Supervisory-Addendum Brief Verification & Attestation Participated in pt care: history, MDM, physical Personally performed: exam, history, MDM, supervision of care Care discussed with: Medical Student Procedures: n/a Results interpretation: Verified all documentation Verification and Attestation of Medical Student E/M Service A medical student performed and documented this service in my presence. I revie wed and verified all information documented by the medical student and made modifications to such information, when appropriate. I personally performed the physical exam and medical decision making. Bushra Bass Sep 16, 2021,05:51 SANDRA SCHWARTZ Sep 15, 2021 15:23 BUSHRA BASS DO Sep 16, 2021 05:54
[2021-09-15] MEDS: ENOXAPARIN 40 MG/0.4 ML (LOVENOX) SYR SC SCH (16:02)
[2021-09-15 16:15] VITALS: BP 112/75
[2021-09-15] MEDS ORDERED: RT-ALBUTEROL SULF 2.5 MG/3 ML PRE-MIX VIAL INH PRN (16:30)
[2021-09-15] MEDS: methylPREDNISolone 125 MG (Solu-MEDROL) VIAL IVP SCH ×2 (17:58→23:35)
[2021-09-15] MEDS: RT-ALBUTEROL SULF 2.5 MG/3 ML PRE-MIX VIAL INH SCH (18:48)
[2021-09-15] MEDS: DOCUSATE SODIUM 100 MG (COLACE) CAP PO SCH (19:23)
[2021-09-15] MEDS: SENNOSIDES 8.6 MG (SENOKOT) TAB PO SCH (19:23)
[2021-09-15 19:51] VITALS: BP 101/65
[2021-09-15 23:00] VITALS: BP 118/72
[2021-09-16 03:19] VITALS: BP 118/80
[2021-09-16] MEDS: methylPREDNISolone 125 MG (Solu-MEDROL) VIAL IVP SCH ×4 (05:35→23:45)
[2021-09-16 06:32] LABS: BASOPHILS % (AUTO) 0 % (0-10); EOSINOPHILS % (AUTO) 0 % (0-10); HEMATOCRIT 41 % (40-54); LYMPHOCYTES # (AUTO) 0.3 10^3/uL (1.0-4.0); LYMPHOCYTES % (AUTO) 6 % (12-44); MEAN CORPUSCULAR HEMOGLOBIN 26 pg (25-34); MEAN CORPUSCULAR HGB CONC 32 g/dL (32-36); MEAN CORPUSCULAR VOLUME 83 fL (80-99); MONOCYTES # (AUTO) 0.4 10^3/uL (0.0-1.0); MONOCYTES % (AUTO) 6 % (0-12); NEUTROPHILS # (AUTO) 5.1 10^3/uL (1.8-7.8); NEUTROPHILS % (AUTO) 88 % (42-75); PLATELET COUNT 229 10^3/uL (130-400); WHITE BLOOD COUNT 5.8 10^3/uL (4.3-11.0)
[2021-09-16 06:51] LABS: BILIRUBIN,TOTAL 0.8 MG/DL (0.1-1.0); CALCIUM 8.8 MG/DL (8.5-10.1); CREATININE SERUM 0.55 MG/DL (0.60-1.30); POTASSIUM 4.2 MMOL/L (3.6-5.0); TOTAL PROTEIN 6.4 GM/DL (6.4-8.2)
[2021-09-16] MEDS: RT-ALBUTEROL SULF 2.5 MG/3 ML PRE-MIX VIAL INH SCH ×4 (07:22→18:56)
[2021-09-16 07:23] LABS: BAND NEUTROPHILS 2 %; BASOPHILS % (MANUAL) 0 %; ELLIPT/OVALOCYTES SLIGHT; EOSINOPHILS % (MANUAL) 0 %; LYMPHOCYTES % (MANUAL) 11 %; MONOCYTES % (MANUAL) 6 %; NEUTROPHILS % (MANUAL) 81 %
[2021-09-16 08:00] VITALS: BP 125/76
[2021-09-16] MEDS: DOCUSATE SODIUM 100 MG (COLACE) CAP PO SCH ×2 (09:45→20:08)
[2021-09-16] MEDS: lisINopril 20 MG (PRINIVIL) TABLET PO SCH (09:45)
[2021-09-16] MEDS: SENNOSIDES 8.6 MG (SENOKOT) TAB PO SCH ×2 (09:45→20:08)
--- NOTE | 2021-09-16 11:00 | Progress Note - Hospitalist ---
SANDRA SCHWARTZ 09/16/21 1100: Subjective HPI/CC On Admission Date Seen by Provider: Sep 16, 2021 Time Seen by Provider: 10:00 Chief complaint: Shortness of breath History of present illness: This is a 66-year-old white male with known history of colon cancer with widespread metastasis undergoing radiation treatment for lung masses who presented with shortness of breath found to have complete whiteout of right lung. Radiation treatment is the only way the tumor can be shrunk in order to improve variation of the lung. Dr. Lee will consult. Oxygen supplementation along with IV steroids and nebulized treatments initiated. He is a DO NOT RESUSCITATE. Subjective/Events-last exam This is a 66 y/o male with a hx of colon cancer with metastases to the lung and liver on hospital day #2 for acute on chronic hypoxic respiratory failure. NAEON. Pt is still requiring 10L High-Flow, with O2 saturations in the low 90%. The patient has no complaints at this time, and states he has a strong appetite, is moving his bowel and bladder well, and is currently not in any pain. He still has a cough. This morning at 840, the patient received his 8th of 10 radiation treatments. Review of Systems General: No Chills; Appetite HEENT: No Head Aches, No Visual Changes, No Dysphasia, No Sore Throat Pulmonary: Cough Cardiovascular: No: Chest Pain, Palpitations Gastrointestinal: No: Nausea, Vomiting, Abdominal Pain, Diarrhea, Constipation Genitourinary: No Dysuria, No Frequency Neurological: No: Confusion Objective Exam Vital Signs Vital Signs Date Time Temp Pulse Resp B/P (MAP) Pulse Ox O2 Delivery O2 Flow Rate FiO2 09/16/21 10:29 88 High Flow N/C 10.00 09/16/21 08:00 36.4 86 16 125/76 (92) Capillary Refill : General Appearance: No Apparent Distress, Chronically ill, Mild Distress HEENT: PERRL/EOMI Neck: Non Tender Respiratory: Chest Non Tender, Decreased Breath Sounds, Wheezing Cardiovascular: Regular Rate, Rhythm, No Gallop, No Murmur Gastrointestinal: Non Tender, Soft Rectal: Deferred Extremity: Non Tender Neurologic/Psychiatric: Alert, Oriented x3, Normal Mood/Affect Skin: Normal Color, Warm/Dry Results/Procedures Lab Laboratory Tests 09/16/21 06:20 Patient resulted labs reviewed. Imaging: Reviewed Imaging Films, Reviewed Imaging Report Assessment/Plan Assessment and Plan Assess & Plan/Chief Complaint This is a 66 y/o male with a hx of adenocarcinoma of the colon with metastases to the liver and lungs who presents with atelectasis of the right lung due to obstruction of the right main stem bronchus by tumor, resulting in acute on chronic hypoxic respiratory failure. In his current condition, it is thought that it will be dangerous to send him home with his current oxygen requirements, so admission to the medicine service is warranted. Diagnosis/Problems Diagnosis/Problems (1) Acute on chronic respiratory failure with hypoxia and hypercapnia Status: Acute Assessment & Plan: - likely 2/2 right lung atelectasis - initial O2 sat by pulse ox in ED: 83% - initial AB.45/45/71/30 - stable O2 requirements at 10L high flow; O2 sat at 94% - CXR/Chest CT suggests obstruction of right main stem bronchus by metastatic disease - pulm toilet w/ CPT q4h for clearance of airway secretions (if no acute spinal pathology, hemoptysis, PE, pulm edema w/ CHF present) - caution over sedation and monitor clearance of airway secretions while on anti-tussives PRN - RCAT, IS q1h awake - wean O2 as tolerated (2) Metastatic adenocarcinoma Status: Chronic Assessment & Plan: - Stage 4 adenocarcinoma of the colon with mets in lung and liver - Pt currently undergoing radiation and chemotherapy treatments at [facility]; tx completed today - Oncology and radiation oncology to follow; appreciate recs - Palliative care consulted; appreciate recs (3) Hypertension Status: Chronic Assessment & Plan: - continue lisinopril/HCTZ Qualifiers: Qualified Codes: I10 - Essential (primary) hypertension (4) Hyperlipemia Status: Chronic Assessment & Plan: - continue statin Qualifiers: Qualified Codes: E78.2 - Mixed hyperlipidemia BUSHRA SZYMANSKI DO 09/17/21 0529: Subjective Subjective/Events-last exam Pt is doing okay Just had radiation treatment Remains on 10L of oxygen Saturations are good Labs are okay He is a DNR Review of Systems General: Fatigue, Malaise Objective Exam General Appearance: No Apparent Distress, Chronically ill, Mild Distress Respiratory: No Accessory Muscle Use, No Respiratory Distress, Decreased Breath Sounds, Wheezing Neurologic/Psychiatric: Alert, Oriented x3 Assessment/Plan Assessment and Plan Assess & Plan/Chief Complaint O2 supplement Monitor closely Supervisory-Addendum Brief Verification & Attestation Participated in pt care: history, MDM, physical Personally performed: exam, history, MDM, supervision of care Care discussed with: Medical Student Procedures: n/a Results interpretation: Verified all documentation Verification and Attestation of Medical Student E/M Service A medical student performed and documented this service in my presence. I reviewed and verified all information documented by the medical student and made modifications to such information, when appropriate. I personally performed the physical exam and medical decision making. Bushra Szymanski, Sep 17, 2021,05:26 SANDRA SCHWARTZ Sep 16, 2021 11:00 BUSHRA SZYMANSKI DO Sep 17, 2021 05:29
[2021-09-16] MEDS ORDERED: ATOR80TA76 PO (11:06)
[2021-09-16 12:00] VITALS: BP 120/67
[2021-09-16] MEDS: ENOXAPARIN 40 MG/0.4 ML (LOVENOX) SYR SC SCH (15:20)
[2021-09-16 16:00] VITALS: BP 118/63
[2021-09-16 18:00] VITALS: BP 118/60
[2021-09-16 23:46] VITALS: BP 126/73
[2021-09-17 04:22] VITALS: BP 129/81
[2021-09-17] MEDS: methylPREDNISolone 125 MG (Solu-MEDROL) VIAL IVP SCH ×2 (05:35→11:17)
[2021-09-17 05:42] LABS: BASOPHILS % (AUTO) 0 % (0-10); EOSINOPHILS % (AUTO) 0 % (0-10); HEMATOCRIT 41 % (40-54); HEMOGLOBIN 13.1 g/dL (13.3-17.7); LYMPHOCYTES # (AUTO) 0.3 10^3/uL (1.0-4.0); LYMPHOCYTES % (AUTO) 3 % (12-44); MEAN CORPUSCULAR HEMOGLOBIN 27 pg (25-34); MEAN CORPUSCULAR HGB CONC 32 g/dL (32-36); MEAN CORPUSCULAR VOLUME 83 fL (80-99); MEAN PLATELET VOLUME 8.7 fL (9.0-12.2); MONOCYTES # (AUTO) 0.7 10^3/uL (0.0-1.0); MONOCYTES % (AUTO) 6 % (0-12); NEUTROPHILS # (AUTO) 10.2 10^3/uL (1.8-7.8); NEUTROPHILS % (AUTO) 90 % (42-75); PLATELET COUNT 242 10^3/uL (130-400); WHITE BLOOD COUNT 11.3 10^3/uL (4.3-11.0)
[2021-09-17] MEDS: CALCIUM CARBONATE 500 MG (TUMS) TAB.CHEW PO PRN ×2 (05:51→14:28)
[2021-09-17 05:56] LABS: ALBUMIN 3.1 GM/DL (3.2-4.5); POTASSIUM 4.2 MMOL/L (3.6-5.0)
[2021-09-17 05:57] LABS: CALCIUM 8.6 MG/DL (8.5-10.1)
[2021-09-17 05:59] LABS: TOTAL PROTEIN 6.3 GM/DL (6.4-8.2)
[2021-09-17 06:00] LABS: BILIRUBIN,TOTAL 0.5 MG/DL (0.1-1.0)
[2021-09-17 06:02] LABS: CREATININE SERUM 0.57 MG/DL (0.60-1.30)
[2021-09-17] MEDS: RT-ALBUTEROL SULF 2.5 MG/3 ML PRE-MIX VIAL INH SCH ×3 (07:18→15:08)
[2021-09-17 08:00] VITALS: BP 122/78
[2021-09-17] MEDS: DOCUSATE SODIUM 100 MG (COLACE) CAP PO SCH (08:19)
[2021-09-17] MEDS: lisINopril 20 MG (PRINIVIL) TABLET PO SCH (08:19)
[2021-09-17] MEDS: SENNOSIDES 8.6 MG (SENOKOT) TAB PO SCH (08:19)
--- NOTE | 2021-09-17 11:04 | Progress Note - Hospitalist ---
SANDRA SCHWARTZ 09/17/21 1104: Subjective HPI/CC On Admission Chief complaint: Shortness of breath History of present illness: This is a 66-year-old white male with known history of colon cancer with widespread metastasis undergoing radiation treatment for lung masses who presented with shortness of breath found to have complete whiteout of right lung. Radiation treatment is the only way the tumor can be shrunk in order to improve variation of the lung. Dr. Lee will consult. Oxygen supplementation along with IV steroids and nebulized treatments initiated. He is a DO NOT RESUSCITATE. Subjective/Events-last exam This is a 66 y/o male with a hx of colon cancer with metastases to the lung and liver on hospital day #3 for acute on chronic hypoxic respiratory failure. NAEON. Pt is still requiring 10L High-Flow, with O2 saturations in the low 90%. The patient has no complaints at this time, and states he has a strong appetite, is moving his bowel and bladder well, and is currently not in any pain. He still has a cough. This morning at 0830, the patient received his 9th of 10 radiation treatments. Hospital Course: Ronni Gonzalez, a 66 year old male patient presented to the [facility] ED for complaints of hypoxia. The patient was preparing to undergo radiation treatment at [facility], when a preliminary x-ray showed a possible collapse of his right lung. Notable findings in the ED included an O2 saturation of 83% on 4L NC and a completely occluded right mainstem bronchus on chest CT. Ultimately, he was admitted to Med/Surg for acute on chronic respiratory failure. Continued appropriate evaluation and management on the general medicine floor service and they progressed well there. He was monitored and treated according to the standard of care. Symptoms were managed well with supplemental oxygen, IV Solu-Medrol, and inhaled albuterol. No evidence of AMS or end organ dysfunction were noted during this admission. No episodes of oxygen desaturations at rest or during exertion requiring more aggressive noninvasive ventilation or invasive ventilation devices were observed. No signs or symptoms of pathological bleeding were noted. He was evaluated for their problems and deemed appropriate for outpatient follow-up. Upon the day of dismissal the patient was in agreement with the plan. The patient was noted by providers, nursing, and/or ancillary staff members to be tolerating the appropriate diet, having bowel movement(s), ambulating, and communicating at their prior baseline prior to dismissal. Patient underwent a home O2 evaluation as well to determine if increased baseline O2 was indicated. All questions were answered and the appropriate follow-up was made prior to the patient's dismissal. They will need to follow up with their PCP for post hospitalization evaluation. On dismissal the patient was encouraged to return to an emergency department if their symptoms/problems persist and/or worsen. Review of Systems General: No Chills, No Night Sweats; Appetite HEENT: No Head Aches, No Visual Changes, No Dysphasia, No Sore Throat Pulmonary: No Dyspnea; Cough Cardiovascular: No: Chest Pain Gastrointestinal: No: Nausea, Vomiting, Abdominal Pain, Diarrhea, Constipation Genitourinary: No Dysuria, No Frequency Objective Exam Vital Signs Vital Signs Date Time Temp Pulse Resp B/P (MAP) Pulse Ox O2 Delivery O2 Flow Rate FiO2 09/17/21 08:00 36.2 94 18 122/78 (93) 93 High Flow N/C 10.00 Capillary Refill : General Appearance: No Apparent Distress HEENT: PERRL/EOMI Neck: Normal Inspection, Non Tender Respiratory: Chest Non Tender, Decreased Breath Sounds Cardiovascular: Regular Rate, Rhythm, No Gallop, No Murmur Gastrointestinal: Non Tender, Soft Rectal: Deferred Extremity: Non Tender Neurologic/Psychiatric: Alert, Oriented x3 Skin: Normal Color, Warm/Dry Results/Procedures Lab Laboratory Tests 09/17/21 05:33 Patient resulted labs reviewed. Imaging: Reviewed Imaging Films, Reviewed Imaging Report Assessment/Plan Assessment and Plan Assess & Plan/Chief Complaint This is a 66 y/o male with a hx of adenocarcinoma of the colon with metastases to the liver and lungs who presents with atelectasis of the right lung due to ob struction of the right main stem bronchus by tumor, resulting in acute on chronic hypoxic respiratory failure.. Diagnosis/Problems Diagnosis/Problems (1) Acute on chronic respiratory failure with hypoxia and hypercapnia Status: Acute Assessment & Plan: - likely 2/2 right lung atelectasis - initial O2 sat by pulse ox in ED: 83% - initial AB.45/45/71/30 - stable O2 requirements at 10L high flow; O2 sat at 94% - CXR/Chest CT suggests obstruction of right main stem bronchus by metastatic disease - pulm toilet w/ CPT q4h for clearance of airway secretions (if no acute spinal pathology, hemoptysis, PE, pulm edema w/ CHF present) - caution over sedation and monitor clearance of airway secretions while on anti-tussives PRN - RCAT, IS q1h awake - wean O2 as tolerated (2) Metastatic adenocarcinoma Status: Chronic Assessment & Plan: - Stage 4 adenocarcinoma of the colon with mets in lung and liver - Pt currently undergoing radiation and chemotherapy treatments at [facility]; 9th of 10 tx completed today - Oncology and radiation oncology to follow; appreciate recs - Palliative care consulted; appreciate recs (3) Hypertension Status: Chronic Assessment & Plan: - continue lisinopril/HCTZ Qualifiers: Qualified Codes: I10 - Essential (primary) hypertension (4) Hyperlipemia Status: Chronic Assessment & Plan: - continue statin Qualifiers: Qualified Codes: E78.2 - Mixed hyperlipidemia BUSHRA BASS DO 09/18/21 0530: Subjective HPI/CC On Admission Date Seen by Provider: Sep 17, 2021 Time Seen by Provider: 10:00 Review of Systems Pulmonary: Dyspnea Objective Exam General Appearance: No Apparent Distress, WD/WN, Chronically ill Respiratory: No Accessory Muscle Use, No Respiratory Distress, Decreased Breath Sounds Cardiovascular: Regular Rate, Rhythm Assessment/Plan Assessment and Plan Assess & Plan/Chief Complaint DC home Supervisory-Addendum Brief Verification & Attestation Participated in pt care: history, MDM, physical Personally performed: exam, history, MDM, supervision of care Care discussed with: Medical Student Procedures: n/a Results interpretation: Verified all documentation Verification and Attestation of Medical Student E/M Service A medical student performed and documented this service in my presence. I reviewed and verified all information documented by the medical student and made modifications to such information, when appropriate. I personally performed the physical exam and medical decision making. Bushra Bass Sep 18, 2021,05:30 SANDRA SCHWARTZ Sep 17, 2021 11:04 BUSHRA BASS DO Sep 18, 2021 05:30
[2021-09-17 12:00] VITALS: BP 125/77
[2021-09-17] MEDS ORDERED: PRED10TA22 PO (12:09)
--- NOTE | 2021-09-17 12:11 | Discharge Summary ---
Discharge Summary Hospital Course Was the Problem List Reviewed?: Yes Problems/Dx: (1) Acute on chronic respiratory failure with hypoxia and hypercapnia Status: Acute (2) Metastatic adenocarcinoma Status: Chronic (3) Hypertension Status: Chronic Qualifiers: Qualified Codes: I10 - Essential (primary) hypertension (4) Hyperlipemia Status: Chronic Qualifiers: Qualified Codes: E78.2 - Mixed hyperlipidemia Hospital Course Date of Admission: Sep 15, 2021 at 14:53 Admission Diagnosis : Family Physician/Provider: Carlos Flowers MD Date of Discharge: 09/17/21 Discharge Diagnosis: Acute hypoxia on chronic respiratory failure, widespread colon cancer with metastasis to the undergoing radiation treatment, COPD, former smoker Hospital Course: This is a 66 y/o male with a hx of colon cancer with metastases to the lung and liver on hospital day #3 for acute on chronic hypoxic respiratory failure. NAEON. Pt is still requiring 10L High-Flow, with O2 saturations in the low 90%. The patient has no complaints at this time, and states he has a strong appetite, is moving his bowel and bladder well, and is currently not in any pain. He still has a cough. This morning at 0830, the patient received his 9th of 10 radiation treatments. Hospital Course: Ronni Gonzalez, a 66 year old male patient presented to the [facility] ED for complaints of hypoxia. The patient was preparing to undergo radiation treatment at [facility], when a preliminary x-ray showed a possible collapse of his right lung. Notable findings in the ED included an O2 saturation of 83% on 4L NC and a completely occluded right mainstem bronchus on chest CT. Ultimately, he was admitted to Med/Surg for acute on chronic respiratory failure. Continued appropriate evaluation and management on the general medicine floor service and they progressed well there. He was monitored and treated according to the standard of care. Symptoms were managed well with supplemental oxygen, IV Solu-Medrol, and inhaled albuterol. No evidence of AMS or end organ dysfunction were noted during this admission. No episodes of oxygen desaturations at rest or during exertion requiring more aggressive noninvasive ventilation or invasive ventilation devices were observed. No signs or symptoms of pathological bleeding were noted. He was evaluated for their problems and deemed appropriate for outpatient follow-up. Upon the day of dismissal the patient was in agreement with the plan. The patient was noted by providers, nursing, and/or ancillary staff members to be tolerating the appropriate diet, having bowel movement(s), ambulating, and communicating at their prior baseline prior to dismissal. Patient underwent a home O2 evaluation as well to determine if increased baseline O2 was indicated. All questions were answered and the appropriate follow-up was made prior to the patient's dismissal. They will need to follow up with their PCP for post hospitalization evaluation. On dismissal the patient was encouraged to return to an emergency department if their symptoms/problems persist and/or worsen. Labs and Pending Lab Test: Laboratory Tests 09/17/21 05:33: White Blood Count 11.3H, Red Blood Count 4.93, Hemoglobin 13.1L, Hematocrit 41, Mean Corpuscular Volume 83, Mean Corpuscular Hemoglobin 27, Mean Corpuscular Hemoglobin Concent 32, Red Cell Distribution Width 14.4, Platelet Count 242, Mean Platelet Volume 8.7L, Immature Granulocyte % (Auto) 1, Neutrophils (%) (Auto) 90H, Lymphocytes (%) (Auto) 3L, Monocytes (%) (Auto) 6, Eosinophils (%) (Auto) 0, Basophils (%) (Auto) 0, Neutrophils # (Auto) 10.2H, Lymphocytes # (Auto) 0.3L, Monocytes # (Auto) 0.7, Eosinophils # (Auto) 0.0, Basophils # (Auto) 0.0, Immature Granulocyte # (Auto) 0.1, Sodium Level 135, Potassium Level 4.2, Chloride Level 99, Carbon Dioxide Level 26, Anion Gap 10, Blood Urea Nitr ogen 16, Creatinine 0.57L, Estimat Glomerular Filtration Rate 107, BUN/Creatinine Ratio 28, Glucose Level 174H, Calcium Level 8.6, Corrected Calcium 9.3, Total Bilirubin 0.5, Aspartate Amino Transf (AST/SGOT) 26, Alanine Aminotransferase (ALT/SGPT) 27, Alkaline Phosphatase 108, Total Protein 6.3L, Albumin 3.1L Home Meds Active Prednisone 10 Mg Tab.ds.pk 10 Mg PO DAILY Take 6 tabs(60mg)daily,decrease by 1 tab(10MG)daily. Reported Atorvastatin Calcium 80 Mg Tablet 80 Mg PO DAILY Lisinopril-Hctz 20-12.5 mg Tab (Lisinopril/Hydrochlorothiazide) 1 Each Tablet 1 Each PO DAILY Assessment/Pt Instructions PCP in 1 week Discharge Planning: <30 minutes discharge planning Discharge Instructions Discharge Diet: No Restrictions Discharge Physical Examination Vital Signs Vital Signs Date Time Temp Pulse Resp B/P (MAP) Pulse Ox O2 Delivery O2 Flow Rate FiO2 09/17/21 12:02 90 High Flow N/C 10.00 09/17/21 08:00 36.2 94 18 122/78 (93) General Appearance: No Apparent Distress, WD/WN, Anxious, Chronically ill Respiratory: No Accessory Muscle Use, No Respiratory Distress, Decreased Breath Sounds Cardiovascular: Regular Rate, Rhythm Allergies: Coded Allergies: adhesive (Verified Allergy, Mild, 09/15/21) Discharge Summary Date of Admission Sep 15, 2021 at 14:53 Date of Discharge Discharge Date: Sep 17, 2021 Admission Diagnosis Assessment: Acute hypoxic respiratory failure Colon cancer with widespread metastasis Lung mass causing whiteout of the lung undergoing radiation treatment the only treatment available Exacerbation of COPD Hypertension Plan: Nebulizers Oxygen IV steroids Radiation treatment Discharge Diagnosis O2 supplement Monitor closely (1) Acute on chronic respiratory failure with hypoxia and hypercapnia Status: Acute Assessment & Plan: - likely 2/2 right lung atelectasis - initial O2 sat by pulse ox in ED: 83% - initial AB.45/45/71/30 - stable O2 requirements at 10L high flow; O2 sat at 94% - CXR/Chest CT suggests obstruction of right main stem bronchus by metastatic disease - pulm toilet w/ CPT q4h for clearance of airway secretions (if no acute spinal pathology, hemoptysis, PE, pulm edema w/ CHF present) - caution over sedation and monitor clearance of airway secretions while on anti-tussives PRN - RCAT, IS q1h awake - wean O2 as tolerated (2) Metastatic adenocarcinoma Status: Chronic Assessment & Plan: - Stage 4 adenocarcinoma of the colon with mets in lung and liver - Pt currently undergoing radiation and chemotherapy treatments at [facility]; tx completed today - Oncology and radiation oncology to follow; appreciate recs - Palliative care consulted; appreciate recs (3) Hypertension Status: Chronic Assessment & Plan: - continue lisinopril/HCTZ Qualifiers: Qualified Codes: I10 - Essential (primary) hypertension (4) Hyperlipemia Status: Chronic Assessment & Plan: - continue statin Qualifiers: Qualified Codes: E78.2 - Mixed hyperlipidemia SEAN BASS DO Sep 17, 2021 12:11
[2021-09-17] MEDS: ENOXAPARIN 40 MG/0.4 ML (LOVENOX) SYR SC SCH (15:07)
== END 2021-09-17 15:35 | disposition home or self-care (01) | DRG 180 ==
LOC: EDUNIT# 09:30 → ER 09:31 → 4TH 14:53
PROVIDERS: ADMIT Internal Medicine; ATTEND Internal Medicine
DX: C78.00 Secondary malignant neoplasm of unspecified lung (principal); J96.21 Acute and chronic respiratory failure with hypoxia; C18.9 Malignant neoplasm of colon, unspecified; C78.7 Secondary malignant neoplasm of liver and intrahepatic bile duct; Z66 Do not resuscitate; Z51.5 Encounter for palliative care; J44.1 Chronic obstructive pulmonary disease with (acute) exacerbation; J98.11 Atelectasis; E78.2 Mixed hyperlipidemia; Z87.891 Personal history of nicotine dependence; K21.9 Gastro-esophageal reflux disease without esophagitis; I50.9 Heart failure, unspecified; I11.0 Hypertensive heart disease with heart failure
CPT/HCPCS: 36415; 71260; 80053; 82805; 85007; 85025; 85027; 85610; 85730; 87636; 94640; 94664; 94760; 94761; 96374

== ENCOUNTER → 2021-09-15 | Outpatient (CLI) | payer MEDICARE ==
[~2021-09-15] MED LIST changes: +ATOR80TA76 PO; -CATHETER FLUSH 10 ML SYR IV PRN; -HOLD METFORMIN - RECEIVED CONTRAST 20 ML VIAL IV SCH; -IOHEXOL 350 MG/ML 100 ML (OMNIPAQUE 350) VIAL IV ONE; -NS 100 ML (IVPB) BAG IV ONE; +PRED10TA22 PO
== END ==
LOC: RAD 09:24
PROVIDERS: ATTEND Nurse Practitioner Family
DX: Z53.9 Procedure and treatment not carried out, unspecified reason (principal)

== ENCOUNTER 2021-09-18 09:01 | Outpatient (RCR) | payer MEDICARE, OTHER ==
[2021-09-04 11:26] LABS: BASOPHILS # (AUTO) 0.1 10^3/uL (0.0-0.1); BASOPHILS % (AUTO) 1 % (0-10); EOSINOPHILS # (AUTO) 0.3 10^3/uL (0.0-0.3); EOSINOPHILS % (AUTO) 3 % (0-10); HEMATOCRIT 46 % (40-54); HEMOGLOBIN 14.7 g/dL (13.3-17.7); LYMPHOCYTES # (AUTO) 1.2 10^3/uL (1.0-4.0); LYMPHOCYTES % (AUTO) 12 % (12-44); MEAN CORPUSCULAR HEMOGLOBIN 27 pg (25-34); MEAN CORPUSCULAR HGB CONC 32 g/dL (32-36); MEAN CORPUSCULAR VOLUME 84 fL (80-99); MEAN PLATELET VOLUME 8.6 fL (9.0-12.2); MONOCYTES # (AUTO) 1.1 10^3/uL (0.0-1.0); MONOCYTES % (AUTO) 10 % (0-12); NEUTROPHILS # (AUTO) 7.5 10^3/uL (1.8-7.8); NEUTROPHILS % (AUTO) 74 % (42-75); PLATELET COUNT 479 10^3/uL (130-400); WHITE BLOOD COUNT 10.2 10^3/uL (4.3-11.0)
[2021-09-04 11:46] LABS: CREATININE SERUM 0.71 MG/DL (0.60-1.30)
[2021-09-04 11:47] LABS: ALBUMIN 3.5 GM/DL (3.2-4.5); BILIRUBIN,TOTAL 1.3 MG/DL (0.1-1.0); CALCIUM 9.9 MG/DL (8.5-10.1); CREATININE SERUM 0.7 MG/DL (0.60-1.30); POTASSIUM 4.4 MMOL/L (3.6-5.0); TOTAL PROTEIN 7.7 GM/DL (6.4-8.2)
--- NOTE | 2021-09-15 09:38 | Diagnostic Imaging Report ---
INDICATION: Decreased breath sounds. TIME OF EXAM: 9:24 AM Comparison is made with chest radiograph from 08/04/2021. Left chest wall port has tip overlying the SVC. Patient has developed complete opacification of the right hemithorax. This is likely owing to combination of pleural fluid and atelectasis. A large mass adjacent to left hilum is again noted. There is no pneumothorax identified. IMPRESSION: Development of complete opacification right hemithorax since prior study from 08/04/2021. Dictated by: Dictated on workstation # [id number]
[~2021-09-18] VITALS: Ht 177.8 cm; Wt 75.7 kg
[~2021-09-18 09:01] MED LIST changes: +ALTEPLASE 2 MG (CATHFLO) CANCER CENTER IV ONE; +ATOR80TA76 PO; +BEVACIZUMAB BVZR IV SCH; +D5W 500 ML IV (CANCER CTR) 500 ML IV SCH; +FAMOTIDINE 20MG/2ML IV (CANCER CTR) IV SCH; +FOSAPREPITANT (CANCER CENTER) 150 MG in NS (IVPB) CANCER CENTER ONLY 150 ML IV SCH; +LEUCOVORIN CALCIUM 800 MG in D5W 250 ML IVPB (CANCER CTR) 250 ML IV SCH; +NS IV SCH; +OXALIPLATIN 160 MG in D5W 250 ML IVPB (CANCER CTR) 250 ML IV SCH; +PRED10TA22 PO; +diphenhydrAMINE 25 MG TAB (BENADRYL) CANCER CENTER PO SCH
== END 2021-09-22 | disposition home or self-care (01) ==
LOC: ONC 09:01
PROVIDERS: ATTEND Internal Medicine Hematology & Oncology
DX: Z51.0 Encounter for antineoplastic radiation therapy (principal); C18.9 Malignant neoplasm of colon, unspecified; C78.02 Secondary malignant neoplasm of left lung; C78.01 Secondary malignant neoplasm of right lung
CPT/HCPCS: 36593; 77290; 77334; 77470; 80053; 82378; 82565; 84520; 85025; G0463 ×2; 71046; 77295; 77300; 77336; 77385; 77417; 96367; 96368; 96375; 96411; 96413; 96416; 99204; 99215

== ENCOUNTER 2021-09-26 10:25 | Outpatient (RCR) | payer MEDICARE ==
[2021-09-23 11:18] LABS: BASOPHILS % (AUTO) 0 % (0-10); EOSINOPHILS % (AUTO) 0 % (0-10); HEMATOCRIT 40 % (40-54); HEMOGLOBIN 12.7 g/dL (13.3-17.7); LYMPHOCYTES # (AUTO) 0.2 10^3/uL (1.0-4.0); LYMPHOCYTES % (AUTO) 2 % (12-44); MEAN CORPUSCULAR HEMOGLOBIN 27 pg (25-34); MEAN CORPUSCULAR HGB CONC 32 g/dL (32-36); MEAN CORPUSCULAR VOLUME 85 fL (80-99); MEAN PLATELET VOLUME 8.6 fL (9.0-12.2); MONOCYTES # (AUTO) 1.7 10^3/uL (0.0-1.0); MONOCYTES % (AUTO) 18 % (0-12); NEUTROPHILS # (AUTO) 7.4 10^3/uL (1.8-7.8); NEUTROPHILS % (AUTO) 78 % (42-75); PLATELET COUNT 172 10^3/uL (130-400); WHITE BLOOD COUNT 9.4 10^3/uL (4.3-11.0)
[2021-09-23 11:35] LABS: BILIRUBIN,TOTAL 2.5 MG/DL (0.1-1.0); CALCIUM 8.6 MG/DL (8.5-10.1); CREATININE SERUM 0.63 MG/DL (0.60-1.30); POTASSIUM 3.7 MMOL/L (3.6-5.0); TOTAL PROTEIN 6.4 GM/DL (6.4-8.2)
[~2021-09-26 10:25] MED LIST changes: -ALTEPLASE 2 MG (CATHFLO) CANCER CENTER IV ONE
== END 2021-10-20 | disposition home or self-care (01) ==
LOC: ONC 10:25
PROVIDERS: ATTEND Internal Medicine Hematology & Oncology
DX: Z51.11 Encounter for antineoplastic chemotherapy (principal); C18.9 Malignant neoplasm of colon, unspecified; C78.02 Secondary malignant neoplasm of left lung; C78.01 Secondary malignant neoplasm of right lung
CPT/HCPCS: 80053; 82378; 85025; 96375; 96411; 96413; 96415; 96416; G0463; 88341; 88342